=== PATIENT | female | born 1990 | race Caucasian/White ===

== ENCOUNTER 2019-06-27 13:00 | Inpatient (IN) ==
[2019-06-27] MEDS ORDERED: *HR* FentaNYL (PF) 100 MCG/2 ML VIAL IVP PRN (13:08)
[2019-06-27] MEDS ORDERED: Famotidine 20 MG/2 ML VIAL IVP PRN (13:08)
[2019-06-27] MEDS ORDERED: Naloxone 0.4 MG/ML INJ IVP PRN (13:08)
[2019-06-27] MEDS ORDERED: Metoclopramide 10 MG/2 ML VIAL IVP PRN (13:08)
[2019-06-27] MEDS ORDERED: Lidocaine 1% 20 ML MDV INFILT PRN (13:09)
[2019-06-27] MEDS ORDERED: Azithromycin 500 MG in 0.9 % Sodium Chloride 250 ML IVPB PRN (13:09)
[2019-06-27] MEDS ORDERED: miSOPROStoL 25 MCG TABLET VG PRN (13:09)
[2019-06-27] MEDS ORDERED: Ondansetron 4 MG/2 ML VIAL IVP PRN (13:09)
[2019-06-27 14:00] LABS: Basophils % 0.2 %; Eosinophils % 0.5 %; Hematocrit 34.3 % (35.3-44.9); Hemoglobin 11.6 g/dL (11.5-15.4); Immature Granulocytes % 0.8 % (0-4); Lymphocytes # 1.4 K/mcL (0.6-4.6); Lymphocytes % 16.2 %; Mean Corpuscular HGB Conc 33.8 g/dL (31.6-35.5); Mean Corpuscular Hemoglobin 32.4 pg (28.0-33.3); Mean Corpuscular Volume 95.8 fL (83.0-100.0); Mean Platelet Volume 9.7 fL (9.4-12.4); Monocytes # 0.5 K/mcL (0.0-1.3); Monocytes % 5.4 %; Neutrophils # 6.4 K/mcL (1.6-8.9); Platelet Count 232 K/mcL (140-400); Red Blood Count 3.58 M/mcL (3.82-4.97); Red Cell Distribution Width 13.4 % (11.5-14.5); Segmented Neutrophils % 76.9 %; White Blood Count 8.3 K/mcL (4.3-11.1)
[2019-06-27 14:07] LABS: Amphetamine Screen,Urine Negative ng/mL (Cutoff=1000); Barbiturate Screen,Urine Negative ng/mL (Cutoff=200); Benzodiazepines Screen,Urine Negative ng/mL (Cutoff=200); Cannabinoid Screen,Urine Negative ng/mL (Cutoff = 50); Cocaine Screen,Urine Negative ng/mL (Cutoff= 300); Opiate Screen,Urine Negative ng/mL (Cutoff=300); Phencyclidine Screen,Urine Negative ng/mL (Cutoff=25); Protein/Creatinine Ratio,Urine 0.13 mg/mg (0.00-0.20)
[2019-06-27 14:20] LABS: Alanine Aminotransferase 12 Units/L (7-52); Aspartate Amino Transferase 18 Units/L (13-39); BUN/Creatinine Ratio 21 (6-26); Blood Urea Nitrogen 10 mg/dL (6-20); Lactate Dehydrogenase 149 Units/L (140-271); Uric Acid 4.2 mg/dL (2.3-7.6); eGFR For African Americans > 60 (> 60); eGFR For Non-African Americans > 60 (> 60)
[2019-06-27] MEDS: Ringers Solution, Lactated 1,000 ML IVC SCH ×2 (16:54→20:19)
[2019-06-27] MEDS ORDERED: EPHEDrine 50 MG/ML VIAL IVP PRN (17:47)
[2019-06-27] MEDS ORDERED: Epidural Premix (fent/bupiv) 110 ML EP ONE (17:50)
[2019-06-27] MEDS ORDERED: Epidural Premix (fent/bupiv) 110 ML EP SCH (18:00)
[2019-06-27] MEDS ORDERED: Acetaminophen 325 MG TABLET PO PRN (19:47)
[2019-06-27] MEDS ORDERED: Oxytocin 20 units/ LR 1000 mL 20 UNIT/1,000 ML BAG IVC ONE (21:01)
[2019-06-28] MEDS ORDERED: Oxytocin 20 units/ LR 1000 mL 20 UNIT/1,000 ML BAG IVC ONE (02:09)
[2019-06-28] MEDS ORDERED: Benzocaine/Menthol 56 GM AEROSOL SPRAY TP PRN (02:26)
[2019-06-28] MEDS ORDERED: *HR* HYDROcodone/Acet 5/325 mg TABLET PO PRN (02:26)
[2019-06-28] MEDS ORDERED: Oxytocin 20 units/ LR 1000 mL 20 UNIT/1,000 ML BAG IVC SCH (02:26)
[2019-06-28] MEDS ORDERED: Lanolin 7 G OINT...G. TP PRN (02:26)
[2019-06-28] MEDS: Acetaminophen 325 MG TABLET PO PRN ×2 (04:23→15:33)
[2019-06-28 05:59] LABS: Basophils % 0.1 %; Eosinophils % 0.1 %; Hematocrit 34.3 % (35.3-44.9); Hemoglobin 11.3 g/dL (11.5-15.4); Immature Granulocytes % 0.5 % (0-4); Lymphocytes # 1.2 K/mcL (0.6-4.6); Lymphocytes % 7.9 %; Mean Corpuscular HGB Conc 32.9 g/dL (31.6-35.5); Mean Corpuscular Hemoglobin 31.7 pg (28.0-33.3); Mean Corpuscular Volume 96.3 fL (83.0-100.0); Mean Platelet Volume 9.9 fL (9.4-12.4); Monocytes # 0.8 K/mcL (0.0-1.3); Monocytes % 5.2 %; Platelet Count 198 K/mcL (140-400); Red Blood Count 3.56 M/mcL (3.82-4.97); Red Cell Distribution Width 13.6 % (11.5-14.5); Segmented Neutrophils % 86.2 %
[2019-06-28 06:03] LABS: Neutrophils # 13.4 K/mcL (1.6-8.9); White Blood Count 15.5 K/mcL (4.3-11.1)
[2019-06-28] MEDS: Prenatal Vit/FA 1 EACH TABLET PO SCH (08:01)
[2019-06-28] MEDS: Ibuprofen 600 MG TABLET PO PRN ×2 (08:02→20:08)
[2019-06-28] MEDS: SUMAtriptan succinate 50 MG TABLET PO PRN (13:43)
[2019-06-29] MEDS: SUMAtriptan succinate 50 MG TABLET PO PRN (07:45)
[2019-06-29] MEDS: Prenatal Vit/FA 1 EACH TABLET PO SCH (09:29)
[2019-06-29] MEDS: Ibuprofen 600 MG TABLET PO PRN (09:29)
[2019-06-29] MEDS: Acetaminophen 325 MG TABLET PO PRN (13:43)
[2019-06-29 14:11] VITALS: BP 132/84
== END 2019-06-29 15:02 | disposition home or self-care (01) | DRG 806 ==
LOC: 1NENULAB 13:06 → 1NENUOBS 06-28 04:44
PROVIDERS: ADMIT Obstetrics & Gynecology; ATTEND Obstetrics & Gynecology

== ENCOUNTER → 2019-07-06 17:15 | Observation (INO) ==
[2019-07-05 11:36] LABS: Basophils % 0.4 %; Eosinophils # 0.1 K/mcL (0.0-0.6); Eosinophils % 0.5 %; Hematocrit 43.9 % (35.3-44.9); Hemoglobin 14.6 g/dL (11.5-15.4); Immature Granulocytes % 0.4 % (0-4); Lymphocytes # 1.1 K/mcL (0.6-4.6); Lymphocytes % 10.9 %; Mean Corpuscular HGB Conc 33.3 g/dL (31.6-35.5); Mean Corpuscular Hemoglobin 31.9 pg (28.0-33.3); Mean Corpuscular Volume 95.9 fL (83.0-100.0); Mean Platelet Volume 8.5 fL (9.4-12.4); Monocytes # 0.5 K/mcL (0.0-1.3); Monocytes % 5.1 %; Neutrophils # 8.7 K/mcL (1.6-8.9); Platelet Count 363 K/mcL (140-400); Red Blood Count 4.58 M/mcL (3.82-4.97); Red Cell Distribution Width 13.2 % (11.5-14.5); Segmented Neutrophils % 82.7 %; White Blood Count 10.5 K/mcL (4.3-11.1)
[2019-07-05] MEDS: Ringers Solution, Lactated 1,000 ML IVC SCH ×2 (11:44→21:08)
[2019-07-05] MEDS: Metoclopramide 10 MG/2 ML VIAL IVP PRN ×2 (11:54→19:03)
[2019-07-05 12:19] LABS: Alanine Aminotransferase 26 Units/L (7-52); Aspartate Amino Transferase 15 Units/L (13-39); BUN/Creatinine Ratio 25 (6-26); Blood Urea Nitrogen 15 mg/dL (6-20); Lactate Dehydrogenase 247 Units/L (140-271); Uric Acid 6.2 mg/dL (2.3-7.6); eGFR For African Americans > 60 (> 60); eGFR For Non-African Americans > 60 (> 60)
[2019-07-05] MEDS: Magnesium Sulf 20 gm/SW 500mL 20 GM/500 ML IV.SOLN IVC SCH ×2 (12:24→21:09)
[2019-07-06] MEDS: Magnesium Sulf 20 gm/SW 500mL 20 GM/500 ML IV.SOLN IVC SCH (06:45)
[2019-07-06 07:46] LABS: Hematocrit 39.6 % (35.3-44.9); Hemoglobin 13.4 g/dL (11.5-15.4); Mean Corpuscular HGB Conc 33.8 g/dL (31.6-35.5); Mean Corpuscular Hemoglobin 32.3 pg (28.0-33.3); Mean Corpuscular Volume 95.4 fL (83.0-100.0); Mean Platelet Volume 8.3 fL (9.4-12.4); Platelet Count 371 K/mcL (140-400); Red Blood Count 4.15 M/mcL (3.82-4.97); Red Cell Distribution Width 13.1 % (11.5-14.5); White Blood Count 9.9 K/mcL (4.3-11.1)
[2019-07-06 08:04] LABS: BUN/Creatinine Ratio 15 (6-26); Blood Urea Nitrogen 8 mg/dL (6-20); eGFR For African Americans > 60 (> 60); eGFR For Non-African Americans > 60 (> 60)
[2019-07-06 08:26] LABS: Magnesium 6.5 mg/dL (1.6-2.6)
[2019-07-06] MEDS: Ringers Solution, Lactated 1,000 ML IVC SCH (09:16)
[2019-07-06 16:30] VITALS: BP 143/91
[~2019-07-06 17:15] MED LIST: *HR* HYDROcodone/Acet 5/325 mg TABLET PO PRN; Calcium Gluconate 1,000 MG/10 ML VIAL IVP PRN; NIFEdipine XL (24 HR) 30 MG TAB.ER.24 PO SCH; NIFEdipine XL (24 HR) 60 MG TAB.ER.24 PO SCH; Prenatal Vit/FA 1 EACH TABLET PO SCH; Ringers Solution, Lactated 1,000 ML ONE
== END | disposition home or self-care (01) ==
LOC: 1NENUOBS
PROVIDERS: ADMIT Obstetrics & Gynecology; ATTEND Obstetrics & Gynecology